=== PATIENT | male | born 1950 | race Caucasian/White ===

== ENCOUNTER 2016-07-10 01:12 | Observation (INO) | payer MEDICARE, BC ==
--- NOTE | ~2016-07-10 | DS ---
Discharge Summary [facility] [address] [facility] [place]. [address] NAME: BERNADETTE RODRIGUEZ : 52 STATUS : DIS [place] PAT#: [id number] AGE: 66 ADM/REG DATE : 07/10/16 MR#: [id number] REPORT SERV DATE: 07/12/16 DICTATED BY: JARROD MELENDEZ DATE: 07/11/16 REPORT STATUS : Draft TRANSCRIBED BY: MODL DATE: 07/11/16 ADMISSION DATE: 07/10/2016 DISCHARGE DATE: 07/11/2016 OBSERVATION DISCHARGE OBSERVATION PERIOD: 07/10/2016 to 07/11/2016 DISCHARGE DIAGNOSES: 1. Paroxysmal atrial fibrillation. 2. Acute vertigo with nausea and vomiting with history of same. 3. Acute on chronic pansinusitis with history of previous sinus surgery 1993 and 1994. 4. Sleep apnea history, status post uvulopalatopharyngoplasty plus tonsillectomy and adenoidectomy. 5. Hypokalemia, present on admission, resolved. 6. Leukocytosis, present on admission, resolved. 7. Hyperglycemia, present on admission, resolved. 8. Multiple food allergies. 9. Multiple environmental allergies. 10.Recent local skin and subcutaneous soft tissue reaction to Pneumovax. 11.Recent large local skin and subcutaneous tissue reaction to bee sting. OPERATIONS AND PROCEDURES: None. 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 Paul Armstrong. 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 He had to pull off the road. He subsequently called 911 for assistance and was taken to [facility] Emergency Room. There he was found to be in atrial fibrillation with a rapid ventricular response with an elevated white count, BUN, blood sugar, and a low potassium. A CT brain was unremarkable. He was given Cardizem, Zofran, and Benadryl IV. He reverted to sinus bradycardia and was transferred here. ADDITIONAL HISTORY: Per Dr. Armstrong. PHYSICAL EXAMINATION: Per Dr. Armstrong. ADMISSION LABORATORY: Per Dr. Armstrong. HOSPITAL COURSE: He was placed in observation status on . Cardiology consultation was obtained. He was seen by Dr. Garcia. Discharge Summary [facility] [address] [place]. [address] NAME: BERNADETTE RODRIGUEZ : 52 STATUS : DIS [place] PAT#: [id number] AGE: 66 ADM/REG DATE : 07/10/16 MR#: [id number] REPORT SERV DATE: 07/12/16 DICTATED BY: JARROD MELENDEZ DATE: 07/11/16 REPORT STATUS : Draft TRANSCRIBED BY: MODL DATE: 07/11/16 Dr. Garcia's impression was: 1. Paroxysmal atrial fibrillation, currently normal sinus rhythm. 2. Prolonged episode of vertigo. 3. Low CHADS-VASc score, daily aspirin recommendation pending echocardiogram and TSH. His hospitalist care was assumed by the undersigned. Additional history included recent enhanced skin and subcutaneous reactions to Pneumovax and a bee sting. He maintained sinus rhythm/sinus bradycardia while hospitalized. He did not have recurrent vertigo or nausea, vomiting, but did have a full sensation in his occiput which had resolved by the time of discharge. Biochemically, a procalcitonin was less than 0.05. A BMP on 07/10/2016 at 0500 hours: Sodium 144, potassium 4.3, chloride 113, CO2 of 25, BUN 21, creatinine 0.74, glucose 107, calcium 8.4, and mag 2.2. A Bentley was normal at 25.4, B12 of 467. Troponin of less than 0.02 and TSH of 0.479. IV fluids started on admission were continued. An echocardiogram was done that showed normal left ventricular size and systolic function with an EF of 55%. There was normal left ventricular diastolic function. There was normal right ventricular size and systolic function. There was no significant valvular disease. Because of his presentation, it was felt that MRI and MRA imaging should be done. He had normal intracranial MRA study. His MRI brain showed no acute intracranial bleed or infarction. There was mild atrophy. There was a mild amount of nonspecific gliotic change, right and left centrum semiovale, question small vessel disease. There was pansinusitis. He was seen by the undersigned on 07/10/2016 at 1019 hours and 07/11/2016 at 0906 hours. On 07/11/2016, his evaluation was reviewed. He felt he was back to normal. His vital signs were stable, and his exam was normal. At this point of his hospitalization, it was felt he had achieved a level of improvement and stability where he could be safely discharged home. He plans to follow up with Dr. Gibbons next week. He, on the advice of his family, is considering further EP evaluation. MEDICATIONS AT DISCHARGE: Aspirin 325 mg daily and Claritin 10 mg daily as needed (uses this for allergies and chronic sinusitis). DD/MODL Jarrod Melendez M.D. Discharge Summary [address] [address] NAME: BERNADETTE RODRIGUEZ : 52 STATUS : DIS [place] PAT#: [id number] AGE: 66 ADM/REG DATE : 07/10/16 MR#: [id number] REPORT SERV DATE: 07/12/16 DICTATED BY: JARROD MELENDEZ DATE: 07/11/16 REPORT STATUS : Draft TRANSCRIBED BY: MODL DATE: 07/11/16 / [id number] CC: Fany Lopez M.D.
--- NOTE | ~2016-07-10 | HP ---
History And Physical [facility] [address] [place]. [address] NAME: BERNADETTE OLSON : 52 STATUS : ADM [place] PAT#: [id number] AGE: 66 ADM/REG DATE : 07/10/16 MR#: [id number] REPORT SERV DATE: 07/10/16 DICTATED BY: DEMETRIO MALIN DATE: 07/10/16 REPORT STATUS : Draft TRANSCRIBED BY: MODL DATE: 07/10/16 DATE OF ADMISSION: 07/10/2016 POINT OF ENTRY: Transferred from [facility] Emergency Department. CHIEF COMPLAINT: Dizziness, nausea, and vomiting. HISTORY OF PRESENT ILLNESS: Mr. Olson is a 66-year-old gentleman with no significant previous medical history, who presented to [facility] Emergency Department today with the acute onset of dizziness, vertigo-type symptoms, as well as nausea, vomiting, and weakness. The patient states that approximately 5 or 6 p.m. this afternoon as he was driving home from dropping his pets off at the vet, he suffered the acute onset of what he describes as dizziness as well as a room spinning sensation. 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 During this time, the patient also became extremely diaphoretic, weak, and may or may not have passed out during this period of time. He reportedly was in his car for a few hours suffering these symptoms until at his 's urging, he called 911 for assistance. He denies any fevers, chills, chest pain, palpitations, shortness of breath, cough, sputum production, abdominal pain, diarrhea, constipation, dysuria, melena, hematochezia, or hemoptysis. Initial evaluation at the emergency department is notable for atrial fibrillation with RVR with heart rates in the 130s. [place] [id number], did have a mildly elevated BUN to creatinine ratio as well as some hyperglycemia and a potassium level of 3.3. Chest x-ray was clear. CT scan of the brain was reportedly undertaken that was unremarkable. He was given 20 mg of IV diltiazem as well as some Zofran and Benadryl with dramatic improvement in the patient's heart rate as well as his nausea, vomiting, and vertigo-type symptoms. Upon transfer to [facility], the patient now is in normal sinus rhythm with heart rates in the upper 50s, currently denying any nausea, vomiting, or vertigo-type symptoms. REVIEW OF SYSTEMS: Comprehensive system review otherwise negative unless listed in history of present illness. PREVIOUS MEDICAL HISTORY: Obstructive sleep apnea, no longer on CPAP, status post UPPP surgery. SURGICAL HISTORY: 1. Sinus surgery x2. 2. UPPP with tonsillectomy and adenoidectomy. History And Physical [address] [address] NAME: BERNADETTE OLSON : 52 STATUS : ADM [place] PAT#: [id number] AGE: 66 ADM/REG DATE : 07/10/16 MR#: [id number] REPORT SERV DATE: 07/10/16 DICTATED BY: DEMETRIO MALIN DATE: 07/10/16 REPORT STATUS : Draft TRANSCRIBED BY: TONYA DATE: 07/10/16 ALLERGIES: 1. BACTRIM. 2. CHOCOLATE. 3. BANANA. 4. MUSHROOM. HOME MEDICATIONS: Claritin 10 mg daily p.r.n. SOCIAL HISTORY: Denies any tobacco, alcohol, or illicits. FAMILY MEDICAL HISTORY: Mother living, otherwise healthy in her lower 90s. Next, father of complications of Crohn's disease. Siblings with leukemia as well as history of bladder cancer. LABS AND IMAGING: All obtained from transfer records from [facility] Emergency Room. 1. White count 13.2, hemoglobin 15.3, hematocrit 45.6, platelet count 212, neutrophil percent is 86%. 2. Sodium 142, potassium 3.3, chloride 106, carbon dioxide 23, BUN 26, creatinine 1.0, glucose 181, calcium 9.3, magnesium 1.7, protein 6.8, albumin 3.9, bilirubin 0.5, ALT 41, AST 30, alkaline phosphatase 83. 3. CK is 44, CK-MB 9.7, troponin 0.01. 4. Urine drug screen is negative. 5. BNP is 72. 6. Chest x-ray per Radiology report shows no acute cardiopulmonary abnormality. 7. EKG per my review shows atrial fibrillation with RVR with heart rates in the 130s initially and in the 80s on recheck with no evidence of any acute ischemia or infarction. 8. CT scan of the brain per verbal report from ER physician, I am missing the formal report, shows no acute intracranial abnormality other than some sinus disease. PHYSICAL EXAMINATION: VITAL SIGNS: Temperature is 97.4 degrees Fahrenheit, pulse is 59 in normal sinus rhythm, respirations 16, saturating 100% on room air, blood pressure 119/74. GENERAL: The patient is awake, alert, and in no acute distress. Resting comfortably in bed. He is a well-developed, well-nourished, male. HEENT: Atraumatic and normocephalic. Moist mucous membranes. Pupils are equal, round, reactive to light and accommodation. Extraocular eye movements are intact. No scleral icterus. NECK: No jugular venous distention. No carotid bruits. CARDIAC: Regular rate and rhythm. No murmurs or gallops. Normal S1, normal S2. LUNGS: Clear to auscultation bilaterally. No wheezes, rhonchi, or crackles. ABDOMEN: Soft, nontender, nondistended. Good bowel sounds. No rebound, guarding, or rigidity. EXTREMITIES: Warm, perfused. No cyanosis, clubbing, or edema. SKIN: Warm and dry. PSYCH: Affect appropriate. NEURO: Alert and oriented x3. Cranial nerves 2 through 12 are grossly intact. Speech is History And Physical [address] [address] NAME: BERNADETTE OLSON : 52 STATUS : ADM [place] PAT#: [id number] AGE: 66 ADM/REG DATE : 07/10/16 MR#: [id number] REPORT SERV DATE: 07/10/16 DICTATED BY: DEMETRIO MALIN DATE: 07/10/16 REPORT STATUS : Draft TRANSCRIBED BY: MODL DATE: 07/10/16 normal. Gait is not assessed. ASSESSMENT AND PLAN: Mr. Olson 66-year-old gentleman with no significant previous medical history, who developed the acute onset of dizziness, lightheadedness with nausea, and vomiting likely secondary to vertigo as well as also found incidentally to be in atrial fibrillation with RVR, however, now back in normal sinus rhythm. PROBLEM LIST: 1. Atrial fibrillation with RVR, now in normal sinus rhythm. 2. Dizziness, nausea, vomiting, likely benign paroxysmal positional vertigo. 3. Leukocytosis. 4. Hypokalemia. 5. Hyperglycemia. PLAN: 1. Atrial fibrillation with RVR. The patient now is in normal sinus rhythm. His [id number]- VASc score is 1 for age, therefore we will hold off on anticoagulation at this time. Given that his heart rate is currently in the upper 50s and in normal sinus rhythm, I will hold off on any additional calcium channel drea or beta-drea at this time. We will check thyroid function studies, echocardiogram, continue telemetry monitoring, trend out cardiac enzymes, and consult Cardiology in the morning. 2. Nausea, vomiting, and dizziness. Based on patient's description, it sounds like this might be of vertigo, likely benign paroxysmal positional vertigo. The patient currently is asymptomatic. We will continue to monitor, p.r.n. meclizine if need. CT scan of the brain was unremarkable. 3. Hypokalemia. Electrolyte repletion protocol. 4. Hyperglycemia. Check hemoglobin A1c. 5. Leukocytosis, unclear etiology at this time. Chest x-ray reportedly was clear. He is afebrile here. We will check urinalysis for completeness, likely stress response from the patient's atrial fibrillation as well as vertigo type symptoms. 6. Deep vein thrombosis prophylaxis. Lovenox subcu. CODE STATUS: The patient wished to be full code. ALISIA/TONYA Demetrio Malin MD / [id number] CC: Tyrone Gibbons M.D.
--- NOTE | ~2016-07-10 | CN ---
Consultation Report [facility] [address] [place]. [address] NAME: BERNADETTE RODRIGUEZ : 52 STATUS : ADM [place] PAT#: [id number] AGE: 66 ADM/REG DATE : 07/10/16 MR#: [id number] REPORT SERV DATE: 07/10/16 DICTATED BY: MARA RYDER DATE: 07/10/16 REPORT STATUS : Draft TRANSCRIBED BY: MODL DATE: 07/10/16 CARDIOLOGY CONSULTATION DATE OF CONSULTATION: REFERRING REASON: Episode of atrial fibrillation. 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 He required two separate surgery for sinuses in the past. He has documented prolonged episode of vertigo. He had one prolonged episode out of the blue when he then stood up from his car and then suddenly felt a spinning sensation in the head and started vomiting. All episode lasted a couple of hours. He was unable to drive and called the ambulance. He has been told by the ambulance, he has atrial fibrillation. He was brought to [facility] where atrial fibrillation was confirmed with his heart rate up to 120 beats per minute. His laboratory values were normal. Chest x ray was normal. The patient received intravenous Cardizem and converted back to sinus rhythm. He was transferred to [facility] and since transfer to the Hospitalist Service, he remains in normal sinus rhythm. He is completely asymptomatic. The patient denies previously documented history of atrial fibrillation. He has a normal cholesterol. He is very physically active. Denies history of diabetes, stroke, TIA, or hypertension. He denies any stimulants. He has recently physical exam by Dr. Gibbons last week and received pneumonia vaccine. He is questioning whether or not, it may be related to it. He denied any other symptoms. The rest of review of systems are negative. PAST MEDICAL HISTORY: 1. He has a long history of vertigo spells. 2. History of sinus surgeries in the past. 3. Frequent sinus congestion in the setting of seasonal allergies. 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 He is . He is exercising frequently without any limitations. Denies smoking, drinking alcohol, or using street drugs. ALLERGIES: SULFA AND BACTRIM. HOME MEDICATION: Claritin 10 mg as needed. FAMILY HISTORY: Negative for sudden cardiac or premature coronary artery disease in the family. PHYSICAL EXAMINATION: GENERAL: In no acute distress. Consultation Report [address] [place]. [address] NAME: BERNADETTE RODRIGUEZ : 52 STATUS : ADM [place] PAT#: [id number] AGE: 66 ADM/REG DATE : 07/10/16 MR#: [id number] REPORT SERV DATE: 07/10/16 DICTATED BY: MARA RYDER DATE: 07/10/16 REPORT STATUS : Draft TRANSCRIBED BY: TONYA DATE: 07/10/16 VITAL SIGNS: Blood pressure 104/58, heart rate 65, and regular. HEENT: Pupils reactive to light and accommodation. Moist mucosa membrane. NECK: No JVD. Normal carotid upstroke. No carotid bruits. LUNGS: Clear to auscultation bilaterally. Normal inspiratory efforts. COR: Normal S1, S2. No S3 or S4. No significant rub or murmurs. ABD: Soft, nontender, nondistended. EXT: No edema. Pedal pulses strong and equal bilaterally. SKIN: Warm with normal turgor. MS: No kyphosis. NEURO/PSY: Alert and oriented. Nonfocal. DATA: CBC and electrolytes are within normal limits. Troponin x1 is negative. Urinalysis revealed rare bacteria and a chest x-ray outside, no acute pathology. Electrocardiogram outside, atrial fibrillation with RVR 120 beats per minute, with nonspecific T-wave changes. Here sinus bradycardia 59 beats per minute. Normal electrocardiogram. ASSESSMENT/PLAN: 1. Paroxysmal atrial fibrillation, currently normal sinus rhythm. 2. Prolonged episode of vertigo with chronic history of vertigo, under these group, the patient is completely asymptomatic and remain in normal sinus rhythm. His CHADS-VASc score is very low. He has been recommended aspirin daily and we will do echocardiogram and check TSH. His cardiovascular exam is normal. We will follow the patient with you. KRISTI/TONYA Mara Ryder M.D. / [id number] CC: Patrice Melendez M.D. Tyrone Gibbons M.D.
[2016-07-10] MEDS ORDERED: CLARIT10 PO (01:57)
[2016-07-10 05:19] LABS: BASOPHILS 0.2 %; BASOPHILS ABSOLUTE 0.01 10/3/uL (0.0-0.16); EOSINOPHILS 0.2 %; EOSINOPHILS ABSOLUTE 0.01 10/3/uL (0.0-0.53); HEMATOCRIT 42.3 % (40.0-51.0); HEMOGLOBIN 14.1 g/dL (13.6-17.8); IMMATURE GRANULOCYTES 0.2 %; IMMATURE GRANULOCYTES ABSOLUTE 0.01 10/3/uL (0.0-0.11); MEAN CORPUS HGB CONC 33.3 g/dL (32.0-36.0); MEAN CORPUSCULAR HEMOGLOB 28.5 pg (26.0-34.0); MEAN CORPUSCULAR VOLUME 85.5 fL (80-100); MONOCYTES 5.4 %; MONOCYTES ABSOLUTE 0.34 10/3/uL (0.21-1.20); NEUTROPHILS ABSOLUTE 4.88 10/3/uL (2.02-8.40); PLATELET COUNT 213 10/3/uL (150-400); RBC DISTRIBUTION WIDTH 13.7 % (12.0-16.0); RED CELL COUNT 4.95 10/6/uL (4.7-6.1); WHITE BLOOD CELLS 6.3 10/3/uL (4.5-10.5)
[2016-07-10 05:22] LABS: MANUAL DIFF NO %
[2016-07-10 06:06] LABS: ALBUMIN 3.1 G/DL (3.5-5.0); BUN (BLOOD UREA NITROGEN) 21 MG/DL (6-23); CALCIUM, SERUM 8.4 MG/DL (8.5-10.4); CHLORIDE, SERUM 113 MMOL/L (96-112); CK-MB 8.8 NG/ML; CKMB INDEX (NOT ORD) 2.6; CO2 (CARBON DIOXIDE) 25 MMOL/L (24-34); CPK 335 U/L (0-200); CREATININE 0.74 MG/DL (0.70-1.30); FOLATE 25.4 NG/ML (>5.2); FREE T4 1.09 NG/DL (0.76-1.46); GFR AFRICAN AMERICAN 112 ML/MIN (>=60); GFR NON AFRICAN AMERICAN 97 ML/MIN (>=60); GLUCOSE, SERUM 107 MG/DL (60-99); PHOSPHORUS, SERUM 3.3 MG/DL (2.5-4.5); POTASSIUM, SERUM 4.3 MMOL/L (3.5-5.3); SODIUM, SERUM 144 MMOL/L (135-148); TROPONIN I <0.02 NG/ML (<0.05)
[2016-07-10 06:09] LABS: PROCALCITONIN <0.05 ng/mL (<0.5)
[2016-07-10 07:40] LABS: ASCORBIC ACID (UR NOT ORDER) 20 (NEG); BILIRUBIN, URINE NEGATIVE (NEG); KETONE, URINE 80 MG/DL (NEG); LEUKOCYTE ESTERASE(NOT OR NEG (NEG); WBC (NOT ORDERED) (RFLEX) 1 (0-5)
[2016-07-10 07:57] LABS: GLYCOHEMOGLOBIN (HbA1c) 5.4 % (4.7-6.1)
[2016-07-10 11:43] LABS: CK-MB 7.5 NG/ML; CPK 284 U/L (0-200); TROPONIN I <0.02 NG/ML (<0.05)
[2016-07-10 11:44] LABS: CKMB INDEX (NOT ORD) 2.6; ULTRASENSITIVE TSH 0.479 MCIU/ML (0.358-3.740)
[2016-07-11] MEDS ORDERED: ASA5GR PO (10:36)
== END 2016-07-11 11:17 | disposition home or self-care (01) ==
LOC: 6NO 01:12
PROVIDERS: Internal Medicine
DX: I48.0 Paroxysmal atrial fibrillation (principal); R42 Dizziness and giddiness; J01.40 Acute pansinusitis, unspecified; J32.4 Chronic pansinusitis; E03.9 Hypothyroidism, unspecified; E87.6 Hypokalemia; K03.9 Disease of hard tissues of teeth, unspecified; D72.829 Elevated white blood cell count, unspecified; R73.9 Hyperglycemia, unspecified; Z90.89 Acquired absence of other organs; Z88.2 Allergy status to sulfonamides; Z88.1 Allergy status to other antibiotic agents; Z91.018 Allergy to other foods
CPT/HCPCS: 70544; 70551; 80069; 81001; 82140; 82150; 82550; 82553; 82607; 82746; 83036; 83735; 84145; 84439; 84443; 84484; 85025; 93005; 93306; 96372; A9270-GY; G0378